=== PATIENT | female | born 1995 | race Caucasian/White ===

== ENCOUNTER 2020-09-07 13:07 | Emergency (ER) | payer OTHER, SELFPAY ==
[2020-09-07 13:36] VITALS: BP 158/72; PULSE 84; RESP 20; TEMP 36.7; O2SAT 98; BMI 25.7
[2020-09-07 14:41] LABS: COVID-19 Test Negative (Negative)
[2020-09-07 14:57] LABS: Strep A Nucleic Acid Negative (Negative)
[2020-09-07 15:34] VITALS: BP 120/76; RESP 17
[2020-09-07] MEDS: predniSONE 20 MG TABLET 60 MG PO (15:39)
[2020-09-07] MEDS: Ibuprofen 600 MG TABLET PO (15:40)
--- NOTE | 2020-09-20 16:24 | ED_ITS ---
HPI - URI/Sore Throat General Chief Complaint: Upper Respiratory Symptoms Stated Complaint: SORE THROAT Time Seen by Provider: 09/07/20 14:10 History of Present Illness HPI Narrative: patient complains of sore throat for 2 days, no fever no chills no difficulty breathing no difficulty swallowing Related Data Previous Rx's Medication Instructions Recorded ibuprofen 600 mg PO Q6H PRN #20 tab 09/07/20 penicillin V potassium 500 mg PO BID 10 Days #20 tab 09/07/20 Allergies Allergy/AdvReac Type Severity Reaction Status Date / Time No Known Allergies Allergy Unverified 12/04/19 16:28 [No Known Allergies*] Review of Systems Review of Systems: positive for sore throat Negatives are no fever no chills no dizziness no weakness no feeling faint no headache no neck pain no chest pain no cough no shortness of breath no nausea vomiting or diarrhea no skin rash Yes all other systems are reviewed and are negative [facility] Past Medical History Source: nursing notes reviewed Medical History (Updated 09/08/20 @ 00:00 by Rosalinda Gilliland) No known health problems Social History Social History Advance Directives: No Advance Directives Information Provided: Yes Patient : No Physical Exam Vital Signs: Vital Signs: Last Vital Signs Temp 98.1 F 09/07/20 13:36 Pulse 84 09/07/20 13:36 Resp 17 09/07/20 15:34 BP 120/76 09/07/20 15:34 Pulse Ox 98 09/07/20 13:36 Body Mass Index 25.7 general appearance no acute distress The eyes no discharge no redness The nose no sinus tenderness The pharynx is clear with no redness exudate or swelling, mucous membranes are moist and voice is normal Neck is supple without lymphadenopathy Chest is clear with symmetrical equal breath sounds Heart no murmur Abdomen soft nontender Skin no rash Course Course Course Narrative: well-appearing patient with negative strep test is given 1 dose of prednisone for her throat and discharged MDM - URI/Sore Throat Lab Data Labs: Lab Results 09/07/20 09/07/20 Range/Units 14:15 14:19 COVID-19 ([facility]) Negative (Negative) COVID-19 Clin Com See Note S. pyogenes GrpA [place] Negative (Negative) Discharge Plan Discharge Clinical Impression: Pharyngitis Patient Disposition: Home, Self-Care Additional Instructions: Negative Strep test was negative but as many people close to have strep throat I wrote the prescription for penicillin Today throat looks normal if you develop swelling redness and white stuff on tonsils you can start the prednisone Drink plenty of fluids return any time if worse Prescriptions: New penicillin V potassium 500 mg tablet 500 mg PO BID 10 Days Qty: 20 RF: 0 ibuprofen 600 mg tablet 600 mg PO Q6H PRN (Reason: pain) Qty: 20 RF: 0 Stand Alone Forms: Work/School Release Interventions: ED Discharge Assessment Last Done: 09/07/20 15:41 Discharge Date/Time: 09/07/20 15:43
== END 2020-09-07 15:43 | disposition home or self-care (01) ==
PROVIDERS: Physician Assistant Medical; Emergency Provider Emergency Medicine Emergency Medical Services; PCP Student in an Organized Health Care Education/Training Program
DX: J02.9 Acute pharyngitis, unspecified (principal); Z20.822 Contact with and (suspected) exposure to COVID-19
CPT/HCPCS: 36415; 87635; 87651; 99283; 99284